=== PATIENT | female | born 1965 | race Caucasian/White ===

== ENCOUNTER → 2018-04-24 10:49 | Outpatient (CLI) | payer OTHER, SELFPAY ==
[2018-04-24 12:17] LABS: Creatinine Urine Random 59.8 mg/dL
[2018-04-24 12:22] LABS: Microalbumi Creatinin Ratio Ur 33.4 ug/mg CR (<30)
[2018-04-24 12:36] LABS: Alanine Aminotransferase 40 IU/L (9-52); Albumin 4.6 g/dL (3.5-5.0); Albumin Globulin Ratio 1.8 (1.0-2.8); Alkaline Phosphatase 59 U/L (38-126); Aspartate Aminotransferase 32 IU/L (14-36); BUN Creatinine Ratio 22.9 (6-22); Bilirubin Total 0.3 mg/dL (0.2-1.3); Blood Urea Nitrogen 16 mg/dL (7-17); Calcium 9.7 mg/dL (8.4-10.2); Carbon Dioxide 29 mmol/L (22-32); Chloride 104 mmol/L (98-107); Estimated Glomerular Filt Rate > 60.0 mL/min (>60); Globulin 2.6 g/dL (1.7-4.1); Glucose 91 mg/dL (70-100); HEMOLYSIS < 15 (0-50); Potassium 4.1 mmol/L (3.4-5.1); Sodium 143 mmol/L (137-145); Total Protein 7.2 g/dL (6.3-8.2)
== END ==
PROVIDERS: PCP Physician Assistant; Visit Provider Physician Assistant
DX: I10 Essential (primary) hypertension (principal)
CPT/HCPCS: 36415; 80053; 82043; 82570

== ENCOUNTER → 2018-08-24 10:08 | Outpatient (CLI) | payer OTHER, SELFPAY ==
--- NOTE | 2018-08-24 10:12 | DI.US.S_ITS ---
PROCEDURE: US PELVIC COMPLETE INDICATIONS: Post menopausal bleeding TECHNIQUE: Real-time scanning was performed of the pelvic organs, with image documentation. Additional endovaginal scanning was necessary due to incomplete visualization of the adnexal and endometrial structures by transabdominal scanning. COMPARISON: [facility], , PELVIC COMPLETE, 02/26/2015, 10:05. FINDINGS: Transabdominal scanning: Limited scanning through the kidneys shows no hydronephrosis. No pathologic free abdominal or pelvic fluid. Endovaginal scanning: Uterus: Uterus is normal in size at 6.2 x 4.4 x 5.4 cm. The endometrium measures 8.0 mm in combined thickness. 2 intramural fibroids present largest measuring up to 2.7 cm similar to prior exam. Ovaries: Right ovary not visualized. Normal left ovary measuring 1.9 x 1.6 x 1.7 cm. IMPRESSION: Abnormal thickening of the endometrial complex. Endometrial biopsy recommended. Dictated by: Mainor LE Interpreted: Kendal Hernandes MD on 08/24/2018 at 12:05 Approved by: Kendal Hernandes M.D. on 08/24/2018 at 15:52
== END ==
PROVIDERS: PCP Physician Assistant; Visit Provider Physician Assistant
DX: N95.0 Postmenopausal bleeding (principal); D25.1 Intramural leiomyoma of uterus; R93.89 Abnormal findings on diagnostic imaging of other specified body structures
CPT/HCPCS: 76856

== ENCOUNTER → 2018-12-18 11:13 | Outpatient (CLI) | payer OTHER, SELFPAY ==
--- NOTE | 2018-12-18 | DI.MG.S_ITS ---
BILATERAL DIGITAL SCREENING MAMMOGRAM 3D/2D WITH CAD: 12/18/2018 CLINICAL: Routine screening. Family history of breast cancer. Comparison is made to exams dated: 12/12/2017 mammogram, 09/13/2016 mammogram - [facility], and 08/12/2014 mammogram - [facility]. The tissue of both breasts is heterogeneously dense. This may lower the sensitivity of mammography. Current study was also evaluated with a Computer Aided Detection (CAD) system. There are benign post operative findings in the right breast. No significant masses, calcifications, or other findings are seen in either breast. There has been no significant interval change. IMPRESSION: There is no mammographic evidence of malignancy. A 1 year screening mammogram is recommended. This exam was interpreted at Station ID: [id number]. NOTE: For mammograms, a report in lay terms will be sent to the patient. Approximately 15% of breast malignancies will not be visualized mammographically. In the management of a palpable breast mass, a negative mammogram must not discourage biopsy of a clinically suspicious lesion. Electronically Signed By: Naveed apodaca/lizz:12/18/2018 12:15:12 letter sent: Normal Exam ACR BI-RADS Category 2: Benign Finding(s) 3342F
== END ==
PROVIDERS: PCP Physician Assistant; Visit Provider Physician Assistant
DX: Z12.31 Encounter for screening mammogram for malignant neoplasm of breast (principal); Z80.3 Family history of malignant neoplasm of breast
CPT/HCPCS: 77063; 77067

== ENCOUNTER → 2019-04-17 10:24 | Outpatient (CLI) | payer OTHER, SELFPAY ==
[2019-04-17 11:26] LABS: Creatinine Urine Random 59.2 mg/dL
[2019-04-17 11:30] LABS: Alanine Aminotransferase 34 IU/L (9-52); Albumin 4.4 g/dL (3.5-5.0); Albumin Globulin Ratio 1.5 (1.0-2.8); Alkaline Phosphatase 59 U/L (38-126); Aspartate Aminotransferase 30 IU/L (14-36); BUN Creatinine Ratio 24.3 (6-22); Bilirubin Total 0.5 mg/dL (0.2-1.3); Blood Urea Nitrogen 17 mg/dL (7-17); Calcium 9.5 mg/dL (8.4-10.2); Carbon Dioxide 27 mmol/L (22-32); Chloride 105 mmol/L (98-107); Cholesterol 179 mg/dL (140-199); Estimated Glomerular Filt Rate > 60.0 mL/min (>60); Globulin 2.9 g/dL (1.7-4.1); Glucose 102 mg/dL (70-100); HDL Cholesterol 67 mg/dL (40-60); HEMOLYSIS < 15 (0-50); LDL Cholesterol Calculated 99 mg/dL (<100); Potassium 4.4 mmol/L (3.4-5.1); Sodium 140 mmol/L (137-145); Total Protein 7.3 g/dL (6.3-8.2); Triglycerides 67 mg/dL (35-150)
[2019-04-17 11:32] LABS: Microalbumi Creatinin Ratio Ur 10.1 ug/mg CR (<30); Microalbumin Urine Random < 0.6 mg/dL (0-1.6)
== END ==
PROVIDERS: PCP Physician Assistant; Visit Provider Physician Assistant
DX: I10 Essential (primary) hypertension (principal); Z13.220 Encounter for screening for lipoid disorders; Z13.6 Encounter for screening for cardiovascular disorders
CPT/HCPCS: 36415; 80053; 80061; 82043; 82570

== ENCOUNTER → 2021-07-16 08:59 | Outpatient (CLI) | payer OTHER, SELFPAY ==
[2021-07-16 19:46] LABS: Add Manual Diff / Slide Review NO; Basophils Absolute Auto 0 /uL (0-100); Basophils Percent Auto 0.7 % (0-2); Eosinophils Absolute Auto 100 /uL (0-450); Eosinophils Percent Auto 1.7 % (2-4); Hematocrit 38.3 % (36-46); Hemoglobin 12.7 g/dL (12.0-16.0); Lymphocytes Absolute Auto 2200 /uL (1100-4500); Lymphocytes Percent Auto 37.5 % (25-40); Mean Corpuscular HGB Conc 33.2 % (30-36); Mean Corpuscular Hemoglobin 31.3 PG (26-34); Mean Corpuscular Volume 94.3 fL (80-100); Monocytes Absolute Auto 400 /uL (0-900); Neutrophils Absolute Auto 3100 /uL (1500-7000); Neutrophils Percent Auto 53.1 % (50-75); Platelet Count 293 X10^3/uL (150-400); Red Blood Cell Count 4.06 X10^6/uL (4.0-5.2); Red Cell Distribution Width 13.5 % (11.6-14.8); White Blood Cell Count 5.9 X10^3/uL (4.5-11.0)
[2021-07-16 19:54] LABS: Alanine Aminotransferase 36 IU/L (<35); Albumin 4.3 g/dL (3.5-5.0); Albumin Globulin Ratio 1.7 (1.0-2.8); Alkaline Phosphatase 66 U/L (38-126); Aspartate Aminotransferase 34 IU/L (14-36); BUN Creatinine Ratio 25.4 (6-22); Bilirubin Total 0.4 mg/dL (0.2-1.3); Blood Urea Nitrogen 18 mg/dL (7-17); Calcium 9.9 mg/dL (8.4-10.2); Carbon Dioxide 29 mmol/L (22-32); Chloride 104 mmol/L (98-107); Cholesterol 186 mg/dL (140-199); Estimated Glomerular Filt Rate > 60.0 mL/min (>60); Globulin 2.6 g/dL (1.7-4.1); Glucose 101 mg/dL (70-100); HDL Cholesterol 65 mg/dL (40-60); HEMOLYSIS < 15 (0-50); LDL Cholesterol Calculated 97 mg/dL (<100); Sodium 140 mmol/L (137-145); Total Protein 6.9 g/dL (6.3-8.2); Triglycerides 121 mg/dL (35-150)
== END ==
PROVIDERS: PCP Physician Assistant; Visit Provider Family Medicine
DX: I10 Essential (primary) hypertension (principal); Z13.220 Encounter for screening for lipoid disorders
CPT/HCPCS: 80053; 80061; 85025

== ENCOUNTER → 2021-11-15 08:35 | Outpatient (CLI) | payer OTHER, SELFPAY ==
[2021-11-15 19:44] LABS: Alanine Aminotransferase 33 IU/L (<35); Albumin 4.2 g/dL (3.5-5.0); Albumin Globulin Ratio 1.7 (1.0-2.8); Alkaline Phosphatase 69 U/L (38-126); Aspartate Aminotransferase 32 IU/L (14-36); BUN Creatinine Ratio 22.2 (6-22); Bilirubin Total 0.6 mg/dL (0.2-1.3); Blood Urea Nitrogen 16 mg/dL (7-17); Calcium 9.3 mg/dL (8.4-10.2); Carbon Dioxide 31 mmol/L (22-32); Chloride 103 mmol/L (98-107); Estimated Glomerular Filt Rate > 60.0 mL/min (>60); Globulin 2.5 g/dL (1.7-4.1); Glucose 101 mg/dL (70-100); HEMOLYSIS < 15 (0-50); Potassium 3.9 mmol/L (3.4-5.1); Sodium 136 mmol/L (137-145); Total Protein 6.7 g/dL (6.3-8.2)
== END ==
PROVIDERS: PCP Physician Assistant; Visit Provider Physician Assistant
DX: R74.8 Abnormal levels of other serum enzymes (principal)
CPT/HCPCS: 80053

== ENCOUNTER → 2022-03-30 12:04 | Outpatient (CLI) | payer OTHER, SELFPAY ==
[2022-03-30 20:47] LABS: Alanine Aminotransferase 33 IU/L (<35); Albumin 4.5 g/dL (3.5-5.0); Albumin Globulin Ratio 1.8 (1.0-2.8); Alkaline Phosphatase 77 U/L (38-126); Aspartate Aminotransferase 31 IU/L (14-36); BUN Creatinine Ratio 26.2 (6-22); Bilirubin Total 0.2 mg/dL (0.2-1.3); Blood Urea Nitrogen 17 mg/dL (7-17); Calcium 9.4 mg/dL (8.4-10.2); Carbon Dioxide 28 mmol/L (22-32); Chloride 103 mmol/L (98-107); Estimated Glomerular Filt Rate > 60 mL/min (>60); Globulin 2.5 g/dL (1.7-4.1); Glucose 124 mg/dL (70-100); HEMOLYSIS < 15 (0-50); Potassium 3.8 mmol/L (3.4-5.1); Sodium 139 mmol/L (137-145)
[2022-03-31 17:41] LABS: Hep C Virus Ab w/Reflex Quant NEGATIVE s/c (NEGATIVE)
== END ==
PROVIDERS: PCP Physician Assistant; Visit Provider Physician Assistant
DX: Z11.59 Encounter for screening for other viral diseases (principal); I10 Essential (primary) hypertension; N28.9 Disorder of kidney and ureter, unspecified
CPT/HCPCS: 80053; 86803

== ENCOUNTER → 2022-08-01 11:32 | Outpatient (CLI) | payer OTHER, SELFPAY ==
[2022-08-01 19:29] LABS: Add Manual Diff / Slide Review NO; Basophils Absolute Auto 100 /uL (0-100); Basophils Percent Auto 0.9 % (0-2); Eosinophils Absolute Auto 100 /uL (0-450); Eosinophils Percent Auto 1.3 % (2-4); Hematocrit 38.1 % (36-46); Hemoglobin 12.8 g/dL (12.0-16.0); Lymphocytes Absolute Auto 2400 /uL (1100-4500); Lymphocytes Percent Auto 35.3 % (25-40); Mean Corpuscular HGB Conc 33.8 % (30-36); Mean Corpuscular Hemoglobin 31.7 PG (26-34); Mean Corpuscular Volume 93.9 fL (80-100); Monocytes Absolute Auto 500 /uL (0-900); Neutrophils Absolute Auto 3700 /uL (1500-7000); Neutrophils Percent Auto 55.5 % (50-75); Platelet Count 271 X10^3/uL (150-400); Red Blood Cell Count 4.05 X10^6/uL (4.0-5.2); Red Cell Distribution Width 13.9 % (11.6-14.8); White Blood Cell Count 6.7 X10^3/uL (4.5-11.0)
[2022-08-01 19:31] LABS: HEMOLYSIS 23 (0-50); Iron 100 ug/dL (37-170)
[2022-08-01 19:43] LABS: Percent Iron Saturation 31 % (15-50); Total Iron Binding Capacity 319 ug/dL (265-497); Transferrin 263 mg/dL (206-381)
[2022-08-01 20:00] LABS: Alanine Aminotransferase 33 IU/L (<35); Albumin 4.4 g/dL (3.5-5.0); Albumin Globulin Ratio 1.7 (1.0-2.8); Alkaline Phosphatase 76 U/L (38-126); Aspartate Aminotransferase 31 IU/L (14-36); BUN Creatinine Ratio 31.7 (6-22); Bilirubin Total 0.3 mg/dL (0.2-1.3); Blood Urea Nitrogen 19 mg/dL (7-17); Calcium 9.7 mg/dL (8.4-10.2); Carbon Dioxide 29 mmol/L (22-32); Chloride 103 mmol/L (98-107); Estimated Glomerular Filt Rate > 60 mL/min (>60); Globulin 2.6 g/dL (1.7-4.1); Glucose 91 mg/dL (70-100); HEMOLYSIS 23 (0-50); Magnesium 2.1 mg/dL (1.6-2.3); Potassium 3.9 mmol/L (3.4-5.1); Sodium 140 mmol/L (137-145)
[2022-08-01 20:10] LABS: Vitamin D 25 Hydroxy (D3) 44.9 ng/mL (30.0-100.0)
[2022-08-01 20:52] LABS: Vitamin B12 806 pg/mL (239-931)
== END ==
PROVIDERS: PCP Physician Assistant; Visit Provider Physician Assistant
DX: E78.00 Pure hypercholesterolemia, unspecified (principal); I10 Essential (primary) hypertension; N28.9 Disorder of kidney and ureter, unspecified; R74.8 Abnormal levels of other serum enzymes; F32.9 Major depressive disorder, single episode, unspecified; Z79.899 Other long term (current) drug therapy
CPT/HCPCS: 80053; 82306; 82607; 83540; 83550; 83735; 85025

== ENCOUNTER → 2023-04-13 09:30 | Outpatient (CLI) | payer OTHER, SELFPAY ==
[2023-04-13 11:32] LABS: Add Manual Diff / Slide Review NO; Basophils Absolute Auto 0 /uL (0-100); Basophils Percent Auto 0.5 % (0-2); Eosinophils Absolute Auto 100 /uL (0-450); Eosinophils Percent Auto 1.1 % (2-4); Hematocrit 39.2 % (36-46); Hemoglobin 13.3 g/dL (12.0-16.0); Lymphocytes Absolute Auto 2100 /uL (1100-4500); Mean Corpuscular HGB Conc 33.9 % (30-36); Mean Corpuscular Hemoglobin 31.7 PG (26-34); Mean Corpuscular Volume 93.6 fL (80-100); Monocytes Absolute Auto 300 /uL (0-900); Monocytes Percent Auto 5.5 % (3-14); Neutrophils Absolute Auto 3400 /uL (1500-7000); Neutrophils Percent Auto 56.9 % (50-75); Platelet Count 271 X10^3/uL (150-400); Red Blood Cell Count 4.19 X10^6/uL (4.0-5.2); Red Cell Distribution Width 13.7 % (11.6-14.8)
[2023-04-13 12:01] LABS: Alanine Aminotransferase 27 IU/L (<35); Albumin 4.4 g/dL (3.5-5.0); Albumin Globulin Ratio 1.5 (1.0-2.8); Alkaline Phosphatase 80 U/L (38-126); Aspartate Aminotransferase 30 IU/L (14-36); Bilirubin Total 0.7 mg/dL (0.2-1.3); Blood Urea Nitrogen 15 mg/dL (7-17); Calcium 9.4 mg/dL (8.4-10.2); Carbon Dioxide 25 mmol/L (22-32); Chloride 106 mmol/L (98-107); Cholesterol 180 mg/dL (140-199); Estimated Glomerular Filt Rate > 60 mL/min (>60); Globulin 2.9 g/dL (1.7-4.1); Glucose 95 mg/dL (70-100); HDL Cholesterol 63 mg/dL (40-60); HEMOLYSIS < 15 (0-50); LDL Cholesterol Calculated 96 mg/dL (<100); Magnesium 2.3 mg/dL (1.6-2.3); Potassium 3.6 mmol/L (3.4-5.1); Sodium 140 mmol/L (137-145); Total Protein 7.3 g/dL (6.3-8.2); Triglycerides 103 mg/dL (35-150)
[2023-04-13 12:13] LABS: Free T3, Triiodothyronine Free 4.65 pg/mL (2.77-5.27)
== END ==
PROVIDERS: PCP Physician Assistant; Referring Provider Physician Assistant; Visit Provider Physician Assistant
DX: F43.0 Acute stress reaction (principal); R00.2 Palpitations; Z13.220 Encounter for screening for lipoid disorders; Z82.49 Family history of ischemic heart disease and other diseases of the circulatory system; I10 Essential (primary) hypertension; N28.9 Disorder of kidney and ureter, unspecified; Z79.899 Other long term (current) drug therapy
CPT/HCPCS: 36415; 80053; 80061; 83735; 84443; 84481; 85025

== ENCOUNTER → 2023-08-16 10:48 | Outpatient (CLI) | payer OTHER, SELFPAY ==
--- NOTE | 2023-08-16 10:49 | DI.CT.S_ITS ---
PROCEDURE: CT LUNG LOW DOSE SCREENING INDICATIONS: lung cancer screening TECHNIQUE: Noncontrast 2.0-2.5 mm thick sections acquired from the pulmonary apices to the posterior costophrenic angles. 7 mm thick axial MIP, and 5 mm coronal and sagittal reformats were then acquired. For radiation dose reduction, the following was used: automated exposure control, adjustment of mA and/or kV according to patient size. COMPARISON: None. FINDINGS: Image quality: Diagnostic, given the low radiation dose technique. Lungs and pleura: Right fissure solid pulmonary nodule versus lymph node measuring 2 mm (3/170). No focal consolidation. No pleural effusion or pneumothorax. Patent central airways. Mediastinum: Heart size is normal. No pericardial effusion. No mediastinal adenopathy by size criteria. Thoracic aorta and central pulmonary arteries are normal in size. Esophagus is normal in caliber. No hiatal hernia. Bones and chest wall: No suspicious bony lesions. No vertebral body compression fractures. No axillary or supraclavicular adenopathy by size criteria. No thyroid nodules which require sonographic follow up, per consensus guidelines. Upper Abdomen: Visualized upper abdomen solid organs and bowel loops appear normal in the absence of contrast. IMPRESSION: Right fissure solid pulmonary nodule versus lymph node measuring 2 mm. LUNG-RADS 2; continued annual screening, if eligible. Dictated by: Donaldo Willis M.D. on 08/16/2023 at 19:13 Approved by: Donaldo Willis M.D. on 08/16/2023 at 19:23
== END ==
PROVIDERS: PCP Physician Assistant; Referring Provider Physician Assistant; Visit Provider Physician Assistant
DX: Z12.2 Encounter for screening for malignant neoplasm of respiratory organs (principal); F17.200 Nicotine dependence, unspecified, uncomplicated
CPT/HCPCS: 71271

== ENCOUNTER → 2024-08-27 08:59 | Outpatient (CLI) | payer OTHER, SELFPAY ==
[2024-08-27 14:41] LABS: Add Manual Diff / Slide Review NO; Basophils Absolute Auto 0 /uL (0-100); Basophils Percent Auto 0.7 % (0-2); Eosinophils Absolute Auto 0 /uL (0-450); Eosinophils Percent Auto 0.7 % (2-4); Hematocrit 38.1 % (36-46); Lymphocytes Absolute Auto 1900 /uL (1100-4500); Lymphocytes Percent Auto 32.6 % (25-40); Mean Corpuscular HGB Conc 34.3 % (30-36); Mean Corpuscular Hemoglobin 31.8 PG (26-34); Mean Corpuscular Volume 92.9 fL (80-100); Monocytes Absolute Auto 300 /uL (0-900); Monocytes Percent Auto 5.5 % (3-14); Neutrophils Absolute Auto 3500 /uL (1500-7000); Neutrophils Percent Auto 60.5 % (50-75); Platelet Count 253 X10^3/uL (150-400); Red Cell Distribution Width 13.6 % (11.6-14.8); White Blood Cell Count 5.7 X10^3/uL (4.5-11.0)
[2024-08-27 14:56] LABS: Alanine Aminotransferase 28 IU/L (<35); Albumin Globulin Ratio 1.7 (1.0-2.8); Alkaline Phosphatase 67 U/L (38-126); Aspartate Aminotransferase 29 IU/L (14-36); BUN Creatinine Ratio 22.4 (6-22); Bilirubin Total 0.5 mg/dL (0.2-1.3); Blood Urea Nitrogen 17 mg/dL (7-17); Calcium 9.4 mg/dL (8.4-10.2); Carbon Dioxide 27 mmol/L (22-32); Chloride 105 mmol/L (98-107); Cholesterol 176 mg/dL (140-199); Estimated Glomerular Filt Rate > 60 mL/min (>60); Globulin 2.3 g/dL (1.7-4.1); Glucose 91 mg/dL (70-100); HDL Cholesterol 71 mg/dL (40-60); HEMOLYSIS < 15 (0-50); LDL Cholesterol Calculated 93 mg/dL (<100); Potassium 3.5 mmol/L (3.4-5.1); Sodium 138 mmol/L (137-145); Total Protein 6.3 g/dL (6.3-8.2); Triglycerides 60 mg/dL (35-150)
[2024-08-27 15:23] LABS: TSH w/ Reflex to FT4 2.75 uIU/mL (0.47-4.68)
[2024-08-29 15:38] LABS: HIV 1 & 2 Ab/Ag 4th Gen Combo NEGATIVE (NEGATIVE)
== END ==
PROVIDERS: PCP Physician Assistant; Visit Provider Physician Assistant
DX: Z13.6 Encounter for screening for cardiovascular disorders (principal); Z12.11 Encounter for screening for malignant neoplasm of colon; Z11.4 Encounter for screening for human immunodeficiency virus [HIV]; R00.2 Palpitations; F32.9 Major depressive disorder, single episode, unspecified; I10 Essential (primary) hypertension; Z79.899 Other long term (current) drug therapy
CPT/HCPCS: 80053; 80061; 84443; 85025; 87389

== ENCOUNTER → 2024-08-31 11:23 | Outpatient (CLI) | payer OTHER, SELFPAY ==
--- NOTE | 2024-08-31 11:25 | DI.CT.S_ITS ---
PROCEDURE: CT LUNG LOW DOSE SCREENING INDICATIONS: annual screening [facility] pulmon nodule vs lymph node TECHNIQUE: Noncontrast 2.0-2.5 mm thick sections acquired from the pulmonary apices to the posterior costophrenic angles. 7 mm thick axial MIP, and 5 mm coronal and sagittal reformats were then acquired. For radiation dose reduction, the following was used: automated exposure control, adjustment of mA and/or kV according to patient size. COMPARISON: [facility], CT, CT LUNG LOW DOSE SCREENING, 08/16/2023, 11:14. FINDINGS: Image quality: Diagnostic. Lower Neck: No enlarged lymph nodes. Thyroid: No thyroid nodules which require sonographic follow up, per consensus guidelines. Axillae: No enlarged lymph nodes. Chest Wall: Unremarkable. Bones: Unremarkable. Lungs and Pleura: No pneumothorax or pleural effusions. No consolidation. Persistent perifissural 3 mm triangular opacity, likely representing an intrapulmonary lymph node (3/170).. Heart: Heart size is normal. No pericardial effusion. Thoracic Vessels: The aorta and pulmonary arteries demonstrate normal size. Mediastinum and Ana Laura: No enlarged lymph nodes. Esophagus: No wall thickening. No hiatal hernia. Upper Abdomen: Visualized upper abdomen solid organs and bowel loops appear normal. IMPRESSION: No suspicious pulmonary nodules. LUNG-RADS 1; continued annual screening, if eligible. Clinically Significant Non-pulmonary Findings: None. Dictated by: Mathew Lackey M.D. on 09/01/2024 at 21:04 Approved by: Mathew Lackey M.D. on 09/01/2024 at 21:22
== END ==
LOC: CT 11:25
PROVIDERS: PCP Physician Assistant; Referring Provider Physician Assistant; Visit Provider Physician Assistant
DX: R91.8 Other nonspecific abnormal finding of lung field (principal); Z12.2 Encounter for screening for malignant neoplasm of respiratory organs
CPT/HCPCS: 71271

== ENCOUNTER → 2024-10-28 10:15 | Outpatient (CLI) | payer OTHER, SELFPAY | PROVIDERS: PCP Physician Assistant; Visit Provider Physician Assistant | DX: N39.0 Urinary tract infection, site not specified (principal) | CPT/HCPCS: 87077; 87086; 87186 ==

== ENCOUNTER → 2024-11-11 12:12 | Outpatient (CLI) | payer OTHER, SELFPAY ==
--- NOTE | 2024-11-11 12:13 | DI.ECHO.S_ITS ---
[facility] : : [address] : : [place] : : [address] : : Phone: [phone] Echocardiogram Report + + :Name: TAURUS DAVE Study Date: 11/11/2024 Height: 64 in : :[facility] ReadingLocation: Weight: 160 lb : : Gender: Female BSA: 1.8 m2 : :: 1965 Age: 59 yrs BP: 127/80 mmHg: :Reason For Study: PVC : :Ordering Physician: EDUARD, : :DARLENE Performed By: Marietta Arredondo : :Referring: BING CHAPA : + + Interpretation Summary The left ventricle is normal in size and wall thickness. Left ventricular ejection fraction is estimated to be 55%. There is mild mitral regurgitation. Procedure: A two-dimensional transthoracic echocardiogram with color flow and Doppler was performed. The study quality was technically adequate. There is no prior echocardiogram noted for this patient. The patient was in sinus rhythm with heart rates between 67-81 bpm during the exam. Left Ventricle: The left ventricle is normal in size and wall thickness. Left ventricular ejection fraction is estimated to be 55%. There are no focal wall motion abnormalities. Right Ventricle: The right ventricle is normal in size and function. Atria: The left atrial size is normal. Right atrial size is normal. There is no Doppler evidence for an interatrial shunt. Mitral Valve: The mitral valve leaflets appear to open well. There is mild mitral regurgitation. Aortic Valve: The aortic valve is trileaflet. The aortic valve opens well. There is no aortic valve stenosis. No aortic regurgitation is present. Tricuspid Valve: The tricuspid valve leaflets are thin and pliable. There is trace tricuspid regurgitation. The right ventricular systolic pressure is estimated to be at least 15 mmHg based on an estimated right atrial pressure of 3 mm Hg. Pulmonic Valve: The pulmonic valve leaflets are thin and pliable; valve motion is normal. There is mild pulmonic regurgitation. Great Vessels: The aortic root is normal size. The dimensions of the ascending aorta are normal. The IVC is of normal diameter and collapses greater than 50% with a sniff. This suggests a low right atrial pressure of 3 mm Hg. Pericardium/ Pleura There is no pericardial effusion. There is no pleural effusion. MMode/2D Measurements & Calculations LVIDd: 5.2 cm LVOT diam: 2.0 cm LVIDs: 3.8 cm Ao root diam: 3.0 cm FS: 26.9 % asc Aorta Diam: 3.1 cm EPSS: 0.85 cm Ao Arch Diam (Prox Trans): 2.4 cm IVSd: 0.78 cm LVPWd: 0.77 cm LV shell. diameter/BSA (cm/m^2): 2.9 LV sys. diameter/BSA (cm/m^2): 2.2 LA A2 area: 16.2 cm2 RA long axis: 5.1 cm LA A4 area: 17.7 cm2 RA area: 16.7 cm2 LA length (vol): 4.7 cm RA vol: 46.0 ml LA vol: 52.0 ml RA : 25.9 ml/m2 LA vol index: 29.3 ml/m2 IVC diam: 1.4 cm RVD1 (basal): 3.6 cm RVD2 (mid): 2.9 cm TAPSE: 2.6 cm Doppler Measurements & Calculations Ao V2 max: 162.3 cm/sec LVOT Max Edwin: 109.3 cm/sec Ao V2 mean: 115.6 cm/sec LV V1 max P.8 mmHg Ao max P.5 mmHg LV V1 VTI: 22.3 cm Ao mean P.8 mmHg ÁLVARO(I,D): 2.1 cm2 Ao V2 VTI: 33.9 cm ÁLVARO(V,D): 2.1 cm2 sev ratio: 0.66 ÁLVARO indexed to BSA (cm^2/m^2): 1.2 MV E max edwin: 107.2 cm/sec TR max edwin: 175.6 cm/sec MV A max edwin: 80.1 cm/sec TR max P.3 mmHg MV E/A: 1.3 PA V2 max: 96.9 cm/sec Med Peak E' Edwin: 9.7 cm/sec PA V2 mean: 64.9 cm/sec E/E' med: 11.1 PA mean P.9 mmHg Lat Peak E' Edwin: 9.0 cm/sec PA pr(Accel): 3.2 mmHg E/E' lat: 11.8 E/e' average: 11.5 MV dec time: 0.22 sec Pulm A Revs Edwin: 26.1 cm/sec SV(LVOT): 70.4 ml Jacinto Levi Revs Dur: 0.08 sec Electronically signed by: Emerson Ivan on Reading Physician:11/11/2024 02:26 PM
== END ==
PROVIDERS: PCP Physician Assistant; Referring Provider Internal Medicine Cardiovascular Disease; Visit Provider Internal Medicine Cardiovascular Disease
DX: I34.0 Nonrheumatic mitral (valve) insufficiency (principal); I37.1 Nonrheumatic pulmonary valve insufficiency; I49.3 Ventricular premature depolarization
CPT/HCPCS: 93306

== ENCOUNTER → 2024-11-20 16:04 | Outpatient (CLI) | payer OTHER, SELFPAY ==
[2024-11-21 19:09] LABS: Appearance Urine UA CLEAR; Bilirubin Urine UA NEGATIVE (NEGATIVE); Color Urine UA YELLOW; Glucose Urine UA NEGATIVE (Negative); Ketones Urine UA NEGATIVE (NEGATIVE); Leukocyte Esterase Urine UA NEGATIVE (NEGATIVE); Nitrite Urine UA NEGATIVE (Negative); Occult Blood Urine UA NEGATIVE (Negative); Protein Urine UA 2+ (Negative); Urobilinogen Urine UA 0.2 E.U./dL (0.2)
[2024-11-21 19:23] LABS: Bacteria Urine Few (2-10); Culture Indicated Urine Cult Not Indicated; RBC Urine 0-1/HPF (0-5/HPF); Squamous Epithelial Cell Urine 5-10 /HPF (0-5/HPF); Urine Volume 10mL (spun); WBC Urine 0-1/HPF (0-5/HPF)
== END ==
PROVIDERS: PCP Physician Assistant; Visit Provider Physician Assistant
DX: N30.01 Acute cystitis with hematuria (principal)
CPT/HCPCS: 81001

== ENCOUNTER → 2025-05-29 10:05 | Outpatient (CLI) | payer OTHER, SELFPAY | PROVIDERS: PCP Physician Assistant; Visit Provider Physician Assistant | DX: R39.9 Unspecified symptoms and signs involving the genitourinary system (principal) | CPT/HCPCS: 87086 ==

== ENCOUNTER → 2025-06-16 10:24 | Outpatient (CLI) | payer OTHER, SELFPAY ==
--- NOTE | 2025-06-16 10:26 | DI.CT.S_ITS ---
PROCEDURE: CT IVP A/P W/WO INDICATIONS: gross hematuria, evaluate upper tracts TECHNIQUE: Optional 5 mm thick noncontrast images acquired from the diaphragm to the symphysis pubis. After the administration of intravenous contrast, 5 mm thick images acquired from the diaphragm to the symphysis pubis after a 10-minute delay. 2 mm thick coronal and sagittal reformats were then performed of the kidneys and ureters. For radiation dose reduction, the following was used: automated exposure control, adjustment of mA and/or kV according to patient size. COMPARISON: None. FINDINGS: Image quality: Diagnostic. Kidneys and Ureters: Both kidneys are normal in size, without hydronephrosis or nephrolithiasis. No perinephric fat stranding. There is normal bilateral renal enhancement. Renal calyces appear normal in morphology when filled with contrast. Opacified portions of both ureters demonstrate normal caliber Bladder: Bladder wall thickness is normal. No calcified bladder stones. OTHER: Lower chest: Unremarkable. Liver: No solid mass. Gallbladder: No radiopaque gallstones or wall thickening. Biliary ducts: No biliary dilation. Pancreas: No ductal dilation. Spleen: Size is within normal limits. Adrenal Glands: No adrenal nodules. Stomach and Bowel: Normal colonic caliber, without significant wall thickening. Peritoneum: No abnormal intraperitoneal fluid. No free air. Ventral Wall: No hernia. Abdominal Nodes: No retroperitoneal or mesenteric adenopathy by size criteria. Vessels: Aorta and inferior vena cava are normal in size. PELVIS: Pelvic Organs: Endometrial thickening to 1.4 cm with heterogeneity. Pelvic Nodes: No enlarged lymph nodes. Miscellaneous: No inguinal hernias are seen. Bones: No aggressive osseous abnormality. Lumbar spondylosis IMPRESSION: No nephrolithiasis or filling defects within the opacified renal collecting system or ureters. Abnormal endometrial thickening. This could represent malignancy. Further evaluation with pelvic ultrasound or tissue sampling recommended. Dictated by: Ector Rios M.D. on 06/16/2025 at 21:16 Approved by: Ector Rios M.D. on 06/16/2025 at 21:22
--- NOTE | 2025-06-16 10:26 | DI.US.S_ITS ---
PROCEDURE: US RENAL COMPLETE INDICATIONS: Lower abd numbness, bleeding, tender TECHNIQUE: Real-time scanning was performed of the kidneys and bladder, with image documentation. COMPARISON: None. FINDINGS: Kidneys: Kidneys are normal in size. Right kidney measures 10.9 cm long; left kidney measures 10.4 cm long. Renal cortices are subjectively normal in thickness. Renal cortical echotexture is normal. No hydronephrosis or nephrolithiasis. No suspicious solid mass lesions. Bladder: Pre pre and postvoid bladder volumes were not measured. Pre-void images demonstrate no intraluminal masses or stones. On pre-void images, bilateral ureteral jets are noted with color Doppler interrogation. (Of note, ureteral jets may not be detectable in up to 25% of cases due to insufficient differences in specific gravity between ureteral and bladder urine). Miscellaneous: No free pelvic fluid. IMPRESSION: No hydronephrosis or nephrolithiasis. No acute sonographic abnormality. Approved by: Jhony Bobo M.D. on 06/16/2025 at 13:46
[2025-06-16 11:02] LABS: Estimated Glomerular Filt Rate > 60 mL/min (>60)
[2025-06-16 12:03] LABS: Appearance Urine UA CLEAR; Bilirubin Urine UA NEGATIVE (NEGATIVE); Color Urine UA YELLOW; Glucose Urine UA NEGATIVE (Negative); Ketones Urine UA NEGATIVE (NEGATIVE); Leukocyte Esterase Urine UA NEGATIVE (NEGATIVE); Nitrite Urine UA NEGATIVE (Negative); Occult Blood Urine UA NEGATIVE (Negative); Protein Urine UA NEGATIVE (Negative); Specific Gravity Urine UA <=1.005 (1.000-1.035); Urobilinogen Urine UA 0.2 E.U./dL (0.2)
[2025-06-16 12:05] LABS: pH Urine UA 5.5 (4.5-8.0)
[2025-06-16 12:07] LABS: Culture Indicated Urine Cult Not Indicated
== END ==
PROVIDERS: PCP Physician Assistant; Referring Provider Physician Assistant; Visit Provider Physician Assistant
DX: R93.89 Abnormal findings on diagnostic imaging of other specified body structures (principal); R31.0 Gross hematuria; N39.0 Urinary tract infection, site not specified; R10.30 Lower abdominal pain, unspecified
CPT/HCPCS: 36415; 74178; 76770; 81001; 82565; Q9967

== ENCOUNTER → 2025-07-01 09:52 | Outpatient (CLI) | payer OTHER, SELFPAY ==
--- NOTE | 2025-07-01 09:53 | DI.US.S_ITS ---
PROCEDURE: US PELVIC COMPLETE INDICATIONS: lower abd numbness, bleeding, tender TECHNIQUE: Real-time scanning was performed of the pelvic organs, with image documentation. Additional endovaginal scanning was necessary due to incomplete visualization of the adnexal and endometrial structures by transabdominal scanning. COMPARISON: [facility], US, US PELVIC COMPLETE, 08/24/2018, 10:34. FINDINGS: Uterus: Uterus is anteverted and normal in size at 7.9 x 5.6 x 4.2 cm. The myometrium is heterogeneous. The endometrium measures 12.5 mm combined thickness with some heterogeneous cystic components. Right anterior subserosal/intramural fibroid measuring 2.3 x 2.1 x 1.5 cm. Calcifications of the cervix. Ovaries: The right ovary measures 2.5 x 2.0 x 1.7 cm, with a calculated ovarian volume of 4.4 cc. The left ovary measures 3.3 x 1.0 x 1.7 cm, with a calculated ovarian volume of 3.0 cc. Calcifications are seen within the bilateral ovaries. Ovaries are prominent in size for a postmenopausal female. Less than 12 follicles can be seen in each ovary. No adnexal masses are seen. Other: No pathologic free abdominal or pelvic fluid. Incidental note of postvoid residual of 143 cc. IMPRESSION: Endometrium is thickened measuring 12.5 mm, recommend endometrial sampling. Uterine fibroid measuring 2.3 cm. Calcifications within the bilateral ovaries which are prominent in size for a postmenopausal female, of uncertain clinical significance. Incidental note of increased urinary bladder postvoid residual of 143 cc. We strive to produce accurate, complete, and clear reports of imaging services. To assist us in improving patient care, this report was composed using standard report templates and voice recognition software. Therefore, it may contain abnormal punctuation, insertions and/or omissions. Occasional wrong-word or sound-alike substitutions may occur. Though we review the report and make efforts to correct it, we do recommend that the report be read carefully in proper context to recognize any text inaccuracies. Dictated by: Wilber Betancur M.D. on 07/01/2025 at 13:04 Approved by: Wilber Betancur M.D. on 07/01/2025 at 13:08
== END ==
LOC: US 09:53
PROVIDERS: PCP Physician Assistant; Referring Provider Physician Assistant; Visit Provider Obstetrics & Gynecology
DX: D25.2 Subserosal leiomyoma of uterus (principal); N83.8 Other noninflammatory disorders of ovary, fallopian tube and broad ligament; R93.89 Abnormal findings on diagnostic imaging of other specified body structures; R31.0 Gross hematuria; R10.30 Lower abdominal pain, unspecified; N39.0 Urinary tract infection, site not specified; Z86.018 Personal history of other benign neoplasm
CPT/HCPCS: 76830; 76856

== ENCOUNTER 2025-08-13 09:53 | Day surgery (SDC) | payer OTHER, SELFPAY ==
[2025-06-25 13:31] VITALS: BMI 26.2
--- NOTE | 2025-08-13 | PATH_ITS ---
[facility] Accession Number: [id number] No. of containers..02 Tissue . 01 Material submitted: . PART A: uterus - UTERINE MASS PART B: endometrium - ENDOMETRIAL CURETTINGS . 01 Diagnosis: A. DESIGNATED UTERINE MASS, EXCISION: Features suggestive of endometrial polyp. No evidence of neoplasm. . B. ENDOMETRIUM, CURETTAGE: Inactive endometrium with no diagnostic abnormality. No evidence of neoplasm. MRV 08/15/2025 1431 Local . 01 Comment: As part of routine software quality analyst, Dr. Wells has reviewed this case and agrees there is no evidence of neoplasm. . 01 Electronically signed: . Michael Del Castillo MD, PhD, Pathologist NPI- [id number] . 01 Gross description: . A. Received in formalin with two patient identifiers, and uterine mass is a 2.5 x 2.0 x 1.0 cm aggregate of vasquez rubbery tissue fragments, entirely submitted in A1-A2. B. Received in formalin with two patient identifiers, and endometrial curettings is a 1.0 x 0.5 x 0.2 cm aggregate of red-brown, hemorrhagic tissue fragments, entirely submitted in B1. ([id number]) /MRV 08/14/2025 1845 Local . 01 Pathologist provided ICD-10: N95.0 . 01 CPT . 720899, 772207 Specimen Comment: A courtesy copy of this report has been sent to [facility] Pathology Performed at: [address] [facility] [id number] MD Milelr Chinchilla MD Phone: [phone]
[2025-08-13] MEDS: LACTATED RINGERS 1,000 ML 42 ML IV (11:15)
[2025-08-13 11:16] VITALS: BP 131/75; PULSE 61; RESP 16; TEMP 36.9; O2SAT 100
--- NOTE | 2025-08-13 11:56 | PM.GYNHP.1 ---
History of Present Illness History of Present Illness Reason for admission: vaginal bleeding Narrative: Dorothea Blair is a 59 year old female presents to surgery for scheduled hysteroscopy D&C due to a thickened Endometrial stripe noted on pelvic US which was done due to postmenopausal bleeding patient did have an EMB performed in clinic which was benign but considering the EMS recommend hysteroscopy which she is scheduled for today. [facility] Medical History Insomnia Hypertension (Unknown) History of irregular menstrual cycles (2011) Abnormal Pap smear of cervix (1992) Sleep apnea (2011) Depression (1989) Scoliosis (Unknown) Cervical spine disease (1989) Chickenpox (1979) Fibroids (2014) Heavy menstrual period (2013) Herpes (~1988) IBS (irritable bowel syndrome) (1984) Surgical History Hx of foot surgery (07/2014) Hx of brain surgery (04/1980) Family History Father Age: 85 Mental health problem Mother Age: 79 Hypertension Mental health problem Grandfather Hypertension Mental health problem Grandmother Cancer Grandfather No problems noted. Grandmother Cancer Social History Smoking Status: Current every day smoker Tobacco: How many years used: 20 second hand exposure: No alcohol intake: current substance use type: does not use Meds Home Medications and Allergies Home Medications ?Medication ?Instructions ?Recorded ?Confirmed ?Type vitamin B complex 1 tab PO DAILY 09/25/18 08/13/25 History cholecalciferol (vitamin D3) 125 125 mcg PO DAILY 11/29/21 08/13/25 History mcg (5,000 unit) capsule metoprolol tartrate 25 mg tablet 12.5 mg PO BID 10/15/24 08/13/25 History telmisartan 20 mg tablet 20 mg PO DAILY #90 tabs 10/16/24 08/13/25 Rx hydrochlorothiazide 25 mg tablet 25 mg PO DAILY #90 tabs 10/23/24 08/13/25 Rx valacyclovir 500 mg tablet 500 mg PO BID PRN Herpes out break 02/14/25 08/13/25 Rx #90 tabs conjugated estrogens 0.625 mg/gram 0.625 mg vaginal 2XW 07/21/25 08/13/25 History vaginal cream magnesium glycinate 400 mg PO DAILY 07/21/25 08/13/25 History Allergies Allergy/AdvReac Type Severity Reaction Status Date / Time Sulfa (Sulfonamide Allergy Mild Hives Verified 08/13/25 11:00 Antibiotics) lisinopril AdvReac Intermediate Cough Verified 08/13/25 11:00 Review of Systems Review of Systems ROS: Yes All systems reviewed with the patient and are negative except as otherwise documented Exam Vital Signs (past 8 hours): - 08/13/25 11:16 Temperature 98.5 F Pulse Rate 61 Respiratory Rate 16 Blood Pressure 131/75 Pulse Oximetry 100 Oxygen Delivery Method Room Air Oxygen Delivery Method Room Air Const General: cooperative, healthy appearing, comfortable and well developed HENFL Head: normal to inspection Resp Effort & Inspection: normal respiratory effort and able to speak in complete sentences Auscultation: clear to auscultation bilaterally Cardio Rate: regular rate Rhythm: regular rhythm Heart Sounds: no murmurs GI Inspection: normal to inspection Palpation: soft Neuro Speech: speech normal Gait: normal gait Psych Appearance: grossly normal Assessment & Plan Assessment and plan (1) Thickened endometrium: Problem details: s/p EMB which is benign considering EMS >1 cm at age 59yo recommend to proceed with hysteroscopy reviewed procedure and risks including bleeding, pain, infection, uterine perforation- all quesitons answered and desires to proceed Status: Acute Time-Based Coding :: [TOTAL MINUTES] spent with patient and on the chart (including review of chart, obtaining history, exam, reviewing outside data, placing orders, documenting exam and treatment plan, and counseling patient) on [DATE].
--- NOTE | 2025-08-13 11:59 | PM.PREOP ---
Pre-operative Note COVID-19 COVID-19 status: Not tested Interval Note History & Physical reviewed/Exam performed by Physician: Yes Changes to H&P: No ASA Class (for procedural sedation): II
--- NOTE | 2025-08-13 12:41 | SUR.OPER ---
Lithotomy on padded OR bed, head on pillow, arms secured on padded arm boards at <90 degrees abduction. Legs secured in padded yellow fins stirrups. All pressure points padded and secured. Surgeon approved final position.
[2025-08-13 12:57] VITALS: BP 111/61; PULSE 54; RESP 15; TEMP 36.2; O2SAT 96
[2025-08-13 13:03] VITALS: BP 114/60; PULSE 60; RESP 15; TEMP 36.3; O2SAT 96
[2025-08-13 13:09] VITALS: BP 119/68; PULSE 70; RESP 20; TEMP 36.3; O2SAT 99
[2025-08-13 13:16] VITALS: BP 143/75; PULSE 59; RESP 18; TEMP 36.2; O2SAT 98
--- NOTE | 2025-08-13 13:23 | PM.GYNOP.1 ---
Operative Date/Time/Diagnoses Date of procedure: 08/13/25 Time of procedure: 12:00 Pre-op diagnosis: Postmenopausal bleeding, thickened endometrial stripe Post-op diagnosis: same Procedure & Clinicians Procedure: Procedures Operation Date: 08/13/25 11:45 Actual Procedure Side Surgeon patti Hysteroscopic polypectomy with Dilation and curettage with myosure Violet Valerio, Indications: Patient is a 59yo F with postmenopausal bleeeding and a thickened endometrial stripe on pelvic US. endometrial biopsy was benign in the office but considering the continued bleeding and thickened endometrium recommend to proceed with hysteroscopy D&C Surgeon: Violet Valerio Anesthesia Type: General Operative Notes Findings: large polypoid appearing structure within the uterine cavity with a wide base on the right lateral wall. otherwise atrophic appearing endometrium, both ostia visualized Closure Type: primary Specimen(s): endometrial curettings and endometrial polyp Applied: none Estimated blood loss (mL): 5 Blood products transfused: none Procedure in detail: The patient was taken to the operating room where she was properly prepped and draped in sterile manner under general anesthesia. After bimanual examination, the cervix was exposed with a weighted vaginal speculum and the anterior lip of the cervix grasped with a tenaculum. The endocervical canal was then progressively dilated with Hanks and Hegar dilators to a #7 Hegar. The myosure hysteroscope was then introduced into the uterine cavity using sterile saline solution as a distending media and with attached video camera. The endometrial cavity was distended with fluids and the cavity visualized. The above findings were noted. The myosure device was then opened and used to remove the polypoid tissue down to the base until the cavity appeared clear of any abnormal tissue or lesions. Several pictures were taken of the endometrial cavity and the hysteroscope removed from the cavity. A large sharp curette was then used to obtain a scant amount of tissue, which was the sent to pathologist for analysis. The instrument was removed from the vaginal vault. The patient was sent to recovery area in satisfactory postoperative condition. fluid deficit- 125ml cutting time- 58 secs Complications: none Post-operative Condition: stable Disposition: PACU
[2025-08-13 13:36] VITALS: BP 147/77; PULSE 57; RESP 16; TEMP 36.7; O2SAT 100
== END 2025-08-13 13:45 | disposition home or self-care (01) ==
PROVIDERS: PCP Physician Assistant; Referring Provider Physician Assistant; Visit Provider Obstetrics & Gynecology
PROC: 0UDB8ZZ Extraction of Endometrium, Via Natural or Artificial Opening Endoscopic (ICD-10-PCS; CPT 58558; principal; 2025-08-13 11:45)
DX: N95.0 Postmenopausal bleeding (principal); R93.89 Abnormal findings on diagnostic imaging of other specified body structures; F17.210 Nicotine dependence, cigarettes, uncomplicated
CPT/HCPCS: 58558; J1100; J1885; J2405; J2704; J3010; J7120